=== PATIENT | male | born 1980 | race Caucasian/White ===

== ENCOUNTER 2017-09-25 03:19 | Inpatient (IN) | payer OTHER ==
[2017-09-25] MEDS ORDERED: VANCOMYCIN 1,000 MG in DEXTROSE 5%-WATER - 250 ML IVPB ONE (03:30)
[2017-09-25] MEDS ORDERED: ACETAMINOPHEN 1000 MG/100 ML VIAL (NON FORMULARY) IVPB ONE (03:33)
--- NOTE | 2017-09-25 03:50 | PDOC ---
History of Present Illness - General Chief Complaint: Ear Problem Stated Complaint: EAR PAIN Time Seen by Provider: 09/25/17 03:23 - History of Present Illness Initial Comments: 09/25/17 03:40 28-year-old male with no significant past medical history presents emergency department with 5 days of progressive left-sided ear pain. Patient reports the pain began while he was on a flight back from [facility] 5 days ago. He also reports throbbing inside his left ear as well as subjective fevers since yesterday. He took ibuprofen last night for pain with some relief but the pain woke him up again in the middle of the night prompting him to come to the emergency department. He denies any history of ear infection. Denies any history of diabetes. Denies trauma to the ear. Reports a mild frontal headache since yesterday. Denies any focal weakness or numbness. Denies any nausea or vomiting. Denies chest pain, shortness of breath, abdominal pain, diarrhea, rashes, stiff neck. Patient's states he is at his baseline mental status. Other than ibuprofen, no treatments tried. Past History - Past Medical History Allergies/Adverse Reactions: Allergies Allergy/AdvReac Type Severity Reaction Status Date / Time No Known Allergies Allergy Verified 09/25/17 03:24 Home Medications: Ambulatory Orders Motrin - 200 mg PO PRN 09/25/17 - Suicide/Smoking/Psychosocial Hx Smoking History: Never smoked Hx Alcohol Use: No Drug/Substance Use Hx: No Review of Systems - Review of Systems Comments:: 09/25/17 03:42 GENERAL/CONSTITUTIONAL: No fever or chills. No weakness. HEAD, EYES, EARS, NOSE AND THROAT: No change in vision. +ear pain. No sore throat. GASTROINTESTINAL: No nausea, vomiting, diarrhea or constipation. GENITOURINARY: No dysuria, frequency, or change in urination. CARDIOVASCULAR: No chest pain or shortness of breath. RESPIRATORY: No cough, wheezing, or hemoptysis. MUSCULOSKELETAL: No joint or muscle swelling or pain. No neck or back pain. SKIN: No rash NEUROLOGIC: +headache, no vertigo, loss of consciousness, or change in strength/ sensation. ENDOCRINE: No increased thirst. No abnormal weight change. HEMATOLOGIC/LYMPHATIC: No anemia, easy bleeding, or history of blood clots. ALLERGIC/IMMUNOLOGIC: No hives or skin allergy. *Physical Exam - Vital Signs Last Vital Signs Temp Pulse Resp BP Pulse Ox 99.2 F 90 16 146/90 98 09/25/17 03:20 09/25/17 03:20 09/25/17 03:20 09/25/17 03:20 09/25/17 03:20 - Physical Exam Comments: 09/25/17 03:43 GENERAL: Awake, alert, and fully oriented, in no acute distress. Non toxic appearing HEAD: +L facial edema EYES: PERRLA, EOMI, sclera anicteric, conjunctiva clear ENT: L auricle:TM ruptured with purulent otorrhea, entire outer ear erythematous especially pinna, +downward, posterior and outward displacement of L auricle. +ttp of mastoid bone. R auricle wnl. Normal dentition, no OP erythema or exudates NECK: Normal ROM, supple, no lymphadenopathy, JVD, or masses LUNGS: Breath sounds equal, clear to auscultation bilaterally. No wheezes, and no crackles HEART: Regular rate and rhythm, normal S1 and S2, no murmurs, rubs or gallops ABDOMEN: Soft, nontender, normoactive bowel sounds. No guarding, no rebound. No masses EXTREMITIES: Normal range of motion, no edema. No clubbing or cyanosis. 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 No menigismus SKIN: Warm, Dry, normal turgor, no rashes or lesions noted. ED Treatment Course - LABORATORY CBC & Chemistry Diagram: 09/25/17 04:40 09/25/17 04:40 - RADIOLOGY Radiology Studies Ordered: Category Date Time Status HEAD CT WITHOUT CONTRAST [CT] Stat CT Scan 09/25/17 03:[address] W/O CONTRAST [CT] Stat CT Scan 09/25/17 03:27 Ordered Medical Decision Making - Medical Decision Making 09/25/17 03:50 36yo M presents to the ED with L ear pain, found to have ruptured L TM, otorrhea , displaced auricle, and mastoid ttp all consistent with acute mastoiditis. Pt covered with IV vanc (no recent abx, no PMH so no need for G-/pseudomonal coverage at this point). WIll obtain CTH and CT temporal bone for initial work up. Pt also has possible facial nerve involvement vs edema causing facial asymmetry. Will require admission, ENT consult, continuous IV abx, and possible MRI to evaluate for intracranial involvement. 09/25/17 04:54 Pt reporting some scalp itching while vanc being infused (about 2/3 complete about 1hour in). Vanc stopped. Benadryl ordered. No redness, sob, wheezing, swelling. Will restart vanc slowly. 09/25/17 06:[address] temporal bone consistent with mastoiditis. PT will need ENT consult thus will send down to [place]. Consult to Dr. Hesham knutson, hospitalist has been microblogged for admission. 09/25/17 06:[address] Ashlee wray at [facility] who accepts pt to inpatient admission. Case discussed in detail with admitting physician including history, physical exam and ancillary studies. Admitting physician has assumed care for the patient, will follow all pending diagnostics and will complete the evaluation and treatment. 09/25/17 06:52 Per ENT answering service, Dr. Guillaume will be calling us back (ENT). *DC/Admit/Observation/Transfer Diagnosis at time of Disposition: Mastoiditis of left side - Discharge Dispostion Condition at time of disposition: Stable Decision to Admit order: Yes - Referrals - Patient Instructions - Post Discharge Activity - Attestations Physician Attestion: 09/25/17 06:47 I, Dr. Nato Alcala MD, attest that this document has been prepared under my direction and personally reviewed by me in its entirety. I further attest, that it accurately reflects all work, treatment, procedures and medical decision -making performed by me.
[2017-09-25] MEDS ORDERED: VANCOMYCIN 1,000 MG VIAL (RESTRICTED TO ID ONLY) ONE (03:54)
[2017-09-25 04:58] LABS: BASO % 0.6 % (0-2.0); EOS % 0.8 % (0-4.5); HEMATOCRIT 43.3 % (35.4-49); HEMOGLOBIN 14.9 GM/dL (11.7-16.9); MCH 31.2 pg (25.7-33.7); MCHC 34.5 g/dl (32.0-35.9); MEAN CELL VOLUME 90.4 fl (80-96); MEAN PLT VOLUME 8.2 fl (7.5-11.1); MONO % 8.7 % (3.8-10.2); NEUT % 73.9 % (42.8-82.8); PLATELET COUNT 254 K/MM3 (134-434); RBC 4.78 M/mm3 (4.00-5.60); RDW 13.1 % (11.9-15.9); WHITE BLOOD COUNT 9.9 K/mm3 (4.0-10.0)
[2017-09-25 05:18] LABS: ALBUMIN 3.7 g/dl (3.4-5.0); ANION GAP 5 (8-16); BILIRUBIN,TOTAL 0.6 mg/dL (0.2-1.0); BLOOD UREA NITROGEN 8 mg/dL (7-18); CALCIUM 8.8 mg/dL (8.5-10.1); CHLORIDE 104 mmol/L (98-107); CO2 31 mmol/L (21-32); CREATININE 0.8 mg/dL (0.7-1.3); GLUCOSE,RANDOM 99 mg/dL (74-106); POTASSIUM 3.7 mmol/L (3.5-5.1); SGOT/AST 26 U/L (15-37); SGPT/ALT 35 U/L (12-78); SODIUM 140 mmol/L (136-145); TOT PROT 7.1 g/dl (6.4-8.2)
[2017-09-25 05:19] LABS: ALK PHOS 110 U/L (45-117)
[2017-09-25] MEDS ORDERED: ACETAMINOPHEN INJECTION 100 ML IVPB ONE (05:29)
[2017-09-25 11:31] VITALS: BMI 30.4
--- NOTE | 2017-09-25 12:04 | HP ---
Admitting History and Physical - Admission Chief Complaint: left ear pain History of Present Illness: This is a 36 year old male who presented to the ED with worsening Left ear pain 10 days ago 09/15/2017, pt was flying back from [facility] and while on the plane began having acute pain. In the last 4 days the pain had been worsening, with fever, swelling and becoming red until last night when he decided to go to the ED. He took Ibuprofen without relief. Initially, seen at [place] pt was found to have a left rupture tympanic membrane, displaced auricle and mastoid ttp c/w acute mastoiditis, give IV vanco. Transferred to [facility] for ENT evaluation History Source: Patient, Family Member Limitations to Obtaining History: No Limitations - Smoking History Smoking history: Never smoked Have you smoked in the past 12 months: No - Alcohol/Substance Use Hx Alcohol Use: No History of Substance Use: reports: None - Social History Usual Living Arrangement: Yes: With Spouse ADL: Independent History of Recent Travel: Yes ([facility] ) Home Medications - Allergies Allergies/Adverse Reactions: Allergies Allergy/AdvReac Type Severity Reaction Status Date / Time No Known Allergies Allergy Verified 09/25/17 03:24 - Home Medications Home Medications: Ambulatory Orders Motrin - 200 mg PO PRN 09/25/17 Review of Systems - Review of Systems Constitutional: reports: Fever Eyes: reports: No Symptoms HENT: reports: Ear Pain, Other (erythema, swelling) Neck: reports: No Symptoms Cardiovascular: reports: No Symptoms Respiratory: reports: No Symptoms Gastrointestinal: reports: No Symptoms Genitourinary: reports: No Symptoms Musculoskeletal: reports: No Symptoms Integumentary: reports: No Symptoms Neurological: reports: No Symptoms Endocrine: reports: No Symptoms Hematology/Lymphatic: reports: No Symptoms Psychiatric: reports: No Symptoms Physical Examination Vital Signs: Vital Signs Temperature 98.2 F 09/25/17 10:40 Pulse Rate 72 09/25/17 10:40 Respiratory Rate 18 09/25/17 10:40 Blood Pressure 144/82 09/25/17 10:40 O2 Sat by Pulse Oximetry (%) 99 09/25/17 10:40 Constitutional: Yes: Calm Eyes: Yes: Conjunctiva Clear HENT: Yes: Other (L ear swelling, purulent discharge inside ear canal, erythema to pinna, posterior ear, tenderness to palpation) Neck: Yes: WNL Cardiovascular: Yes: Regular Rate and Rhythm, S1, S2 Respiratory: Yes: Regular, CTA Bilaterally Gastrointestinal: Yes: Normal Bowel Sounds, Soft Renal/: Yes: WNL Musculoskeletal: Yes: WNL Edema: No Integumentary: Yes: Erythema (L ear) Neurological: Yes: Alert, Oriented, Cran Nerves II-XII Intact Labs: CBC, BMP 09/25/17 04:40 09/25/17 04:40 Imaging - Results Cat Scan: Report Reviewed (left otitis externa, acute otitis media w/ masiod air cell effusion, acute mastoiditis) Assessment/Plan Assessment: 36 year old male with left ear pain Plan: 1. Left otitis externa with cellulitis, swelling - Discussed imaging with Dr. Isaacs ENT, and reviewed images, no effusions seen in mastoid cells, less likely mastoiditis - Start zosyn q8hr - Start ofloxacin 5 gtt BID - Decadron 8mg x1 now - ID consult - IV hydration - Send wound cx - Discussed above with Dr. Isaacs 2. DVT - Heparin sq Visit type - Emergency Visit Emergency Visit: Yes ED Registration Date: 09/25/17 Care time: The patient presented to the Emergency Department on the above date and was hospitalized for further evaluation of their emergent condition. - New Patient This patient is new to me today: Yes Date on this admission: 09/25/17 - Critical Care Critical Care patient: No Hospitalist Screening - Colonoscopy Questionnaire Colonoscopy Questionnaire: Colonoscopy Questionnaire - Patient: 50 - 75 years old and never had a screening colonoscopy: Unknown History of colon or rectal polyps, or CA: Unknown History of IBD, Crohn's disease or UC: Unknown History of abdominal radiation therapy as a child: Unknown - Relative: 1 with colon or rectal CA, or polyps at age 60 or younger: Unknown Colon or rectal CA diagnosed at age 45 or younger: Unknown Multiple relatives with colon or rectal CA: Unknown - Outcome: Screening Result: Negative Screen
[2017-09-25] MEDS ORDERED: oxyCODONE HCL 5 MG TABLET PO PRN ×2 (12:32→14:27)
[2017-09-25] MEDS ORDERED: ACETAMINOPHEN 325 MG TABLET (FP) PO PRN (12:32)
--- NOTE | 2017-09-25 12:36 | CON.ENT ---
Consult Consult Specialty:: ENT Reason for Consultation:: Left ear pain - History of Present Illness Chief Complaint: Left ear pain for 3 days History of Present Illness: 36 yo male with 3 days of worsening left ear pain, discharge and trouble hearing. Pt went to [facility] for evaluation, noted to have swollen ear canal and auricle, diagnosed with mastoiditis due to CT scan findings - History Source History Provided By: Patient, Medical Record - Alcohol/Substance Use Hx Alcohol Use: No History of Substance Use: reports: None - Smoking History Smoking history: Never smoked Have you smoked in the past 12 months: No - Social History ADL: Independent History of Recent Travel: Yes ([facility] ) Home Medications - Allergies Allergies/Adverse Reactions: Allergies Allergy/AdvReac Type Severity Reaction Status Date / Time No Known Allergies Allergy Verified 09/25/17 03:24 - Home Medications Home Medications: Ambulatory Orders Motrin - 200 mg PO PRN 09/25/17 Review of Systems - Review of Systems HENT: reports: Ear Pain Physical Exam-ENT Vital Signs: Vital Signs Temperature 98.2 F 09/25/17 10:40 Pulse Rate 72 09/25/17 10:40 Respiratory Rate 18 09/25/17 10:40 Blood Pressure 144/82 09/25/17 10:40 O2 Sat by Pulse Oximetry (%) 99 09/25/17 10:40 Constitutional: Yes: Well Nourished, No Distress, Severe Distress Face: Yes: Symmetrical Eyes: Yes: WNL Nose: Yes: WNL, Pale Nasal Passage: Yes: Pale Oral/Pharynx: Yes: WNL Outer Ear: Yes: Edema, Pain, Redness, Other (Left auricular erythema/edema including lobule. No mastoid tenderness. Canal edema/discharge, unable to visualize TM) Ear Canal: Yes: Drainage, Inflamed (Left auricle with erythema/edema including lobule. No mastoid tenderness), Other Tympanic Membrane: Yes: Other (Normal on right, unable to visualize on left) Neck: Yes: WNL Neurological: Yes: Cran Nerves II-XII Intact Imaging - Results Cat Scan: Report Reviewed, Image Reviewed (Left canal edema, scattered mastoid cell effusion, no coalescence or bony destruction) Problem List - Problems (1) Otitis externa in other diseases classified elsewhere, left ear Assessment/Plan: Left ear pain/swollen canal with auricular induration- recommend Unasyn/ Augmentin and Ofloxacin drops. Code(s): H62.42 - OTITIS EXTERNA IN OTH DISEASES CLASSD ELSWHR, LEFT EAR (2) Cellulitis of auricle of left ear Assessment/Plan: Swollen left auricle including lobule- no mastoid tenderness or induration. Minimal fluid on CT scan, no coalescence or bony destruction. Treat as above. Code(s): H60.12 - CELLULITIS OF LEFT EXTERNAL EAR
[2017-09-25] MEDS ORDERED: DEXTROSE 5%-WATER - 50 ML IVPB ONE ×2 (13:59→18:22)
[2017-09-25] MEDS ORDERED: PIPERACILLIN/TAZOBACTAM 3.375 GM VIAL IVPB ONE ×2 (13:59→18:22)
[2017-09-25] MEDS ORDERED: DEXAMETHASONE SOD PHOSPHATE 4 MG/1 ML VIAL IVPUSH ONE (14:00)
[2017-09-25] MEDS ORDERED: OFLOXACIN 0.3% OTIC SOLUTION 5 ML BOTTLE AU SCH (14:00)
[2017-09-25] MEDS: PIPERACILLIN/TAZOB 3.375 GM 3.375 GM in DEXTROSE 5%-WATER - 50 ML IVPB SCH ×2 (14:03→18:25)
[2017-09-25] MEDS: SODIUM CHLORIDE 1,000 ML IV SCH (15:07)
[2017-09-25] MEDS: HEPARIN NA (PORCINE) 5,000 UNITS/ML 1ML VIAL SQ SCH ×2 (16:05→21:05)
[2017-09-25] MEDS ORDERED: VANCOMYCIN 1,000 MG in DEXTROSE 5%-WATER - 250 ML IVPB SCH (17:00)
--- NOTE | 2017-09-25 18:31 | PN ---
Progress Note (short form) - Note Progress Note: ID Consult dictated
[2017-09-25] MEDS: OFLOXACIN 0.3% OTIC SOLUTION 5 ML BOTTLE AS SCH (21:05)
[2017-09-26] MEDS ORDERED: DEXTROSE 5%-WATER 100 ML IVPB ONE ×2 (00:58→09:11)
[2017-09-26] MEDS ORDERED: PIPERACILLIN/TAZOBACTAM 4.5 GM VIAL IVPB ONE ×2 (00:58→09:11)
[2017-09-26] MEDS: PIPERACILLIN/TAZOB 4.5 GM 4.5 GM in DEXTROSE 5%-WATER 100 ML IVPB SCH ×2 (02:49→09:49)
[2017-09-26] MEDS: SODIUM CHLORIDE 1,000 ML IV SCH ×2 (05:09→09:49)
[2017-09-26] MEDS: HEPARIN NA (PORCINE) 5,000 UNITS/ML 1ML VIAL SQ SCH ×2 (05:52→13:42)
[2017-09-26] MEDS ORDERED: PT OWN MED DRAWER 7, Y5N ONE (06:56)
[2017-09-26 07:28] LABS: BASO % 0.2 % (0-2.0); HEMATOCRIT 41.3 % (35.4-49); HEMOGLOBIN 14.6 GM/dL (11.7-16.9); LYMPH % 9.3 % (8-40); MCH 31.7 pg (25.7-33.7); MCHC 35.3 g/dl (32.0-35.9); MEAN CELL VOLUME 89.7 fl (80-96); MONO % 3.6 % (3.8-10.2); NEUT % 86.9 % (42.8-82.8); PLATELET COUNT 277 K/MM3 (134-434); RBC 4.61 M/mm3 (4.00-5.60); RDW 13.1 % (11.9-15.9); WHITE BLOOD COUNT 15.9 K/mm3 (4.0-10.0)
[2017-09-26 07:31] LABS: ALBUMIN 3.2 g/dl (3.4-5.0); ANION GAP 7 (8-16); BLOOD UREA NITROGEN 12 mg/dL (7-18); CALCIUM 8.9 mg/dL (8.5-10.1); CHLORIDE 105 mmol/L (98-107); CO2 29 mmol/L (21-32); GLUCOSE,RANDOM 113 mg/dL (74-106); SODIUM 141 mmol/L (136-145)
[2017-09-26 07:35] LABS: ALK PHOS 99 U/L (45-117); BILIRUBIN,TOTAL 0.4 mg/dL (0.2-1.0); CREATININE 0.8 mg/dL (0.7-1.3); SGOT/AST 16 U/L (15-37); SGPT/ALT 31 U/L (12-78); TOT PROT 6.7 g/dl (6.4-8.2)
[2017-09-26] MEDS: OFLOXACIN 0.3% OTIC SOLUTION 5 ML BOTTLE AS SCH (09:49)
--- NOTE | 2017-09-26 10:10 | PN ---
Physical Exam: SUBJECTIVE: Patient seen and examined. Pt is feeling remarkably well today, smiling, asking to go home. Denies fever, chills. Only mild pain to area of tragus OBJECTIVE: Vital Signs Period Temp Pulse Resp BP Sys/Goldstein Pulse Ox Last 24 Hr 97.5 F-98.7 F 66-88 16-19 129-155/69-99 99-99 PE Neuro: alert, awake, cn 2-12intact HEENT: L ear swelling-improved, erythema resolved, tragus region tender to palpation, no drainage from ear canal Pulm: CTAB CV: s1 s2 rrr no mrg Abd: s nt nd + bs Ext: warm, no le edema Laboratory Results - last 24 hr 09/26/17 09/26/17 06:10 06:10 WBC 15.9 H RBC 4.61 Hgb 14.6 Hct 41.3 MCV 89.7 MCH 31.7 MCHC 35.3 RDW 13.1 Plt Count 277 MPV 8.0 Absolute Neuts (auto) 13.8 Neutrophils % 86.9 H Lymphocytes % 9.3 D Monocytes % 3.6 L Eosinophils % 0.0 D Basophils % 0.2 Nucleated RBC % 0 Sodium 141 Potassium 4.0 Chloride 105 Carbon Dioxide 29 Anion Gap 7 L BUN 12 Creatinine 0.8 Creat Clearance w eGFR > 60 Random Glucose 113 H Calcium 8.9 Total Bilirubin 0.4 AST 16 D ALT 31 Alkaline Phosphatase 99 D Total Protein 6.7 Albumin 3.2 L Active Medications Generic Name Dose Route Start Last Admin Trade Name Freq PRN Reason Stop Dose Admin Acetaminophen 650 mg 09/25/17 12:32 Tylenol - PO Q4H PRN PAIN LEVEL 1 - 3 Heparin Sodium (Porcine) 5,000 unit 09/25/17 16:00 09/26/17 05:52 Heparin - SQ 5,000 unit TID FEI Administration Sodium Chloride 1,000 mls @ 83 mls/hr 09/25/17 12:45 09/26/17 09:49 Normal Saline - IV Not Given ASDIR FEI Piperacillin Sod/Tazobactam 100 mls @ 200 mls/hr 09/26/17 02:00 09/26/17 09: 49 Sod 4.5 gm/ Dextrose IVPB 200 mls/hr Q8H-IV FEI Administration Protocol Ofloxacin 5 drop 09/25/17 17:48 09/26/17 09:49 Floxin Otic (Ear) Solution - 5 drop BID FEI Administration Oxycodone HCl 5 mg 09/25/17 14:27 Roxicodone - PO Q4H PRN PAIN LEVEL 4 - 6 Microbiology 09/25/17 04:40 Blood - Peripheral Venous Blood Culture - Preliminary NO GROWTH OBTAINED AFTER 24 HOURS, INCUBATION TO CONTINUE FOR 4 DAYS. 09/25/17 04:40 Blood - Peripheral Venous Blood Culture - Preliminary NO GROWTH OBTAINED AFTER 24 HOURS, INCUBATION TO CONTINUE FOR 4 DAYS. Assessment: 36 year old male with left ear pain Plan: 1. Left otitis externa with cellulitis, swelling - Continue Zosyn 405gm q8hr (day 1) - Continue ofloxacin 5 gtt BID (day 2 of 10) 2. HTN - BP elevated here, not on home medication, would trend - Start hctz if needed, no risk factors noted - Will check hgb a1c, lipid panel 3. DVT ppx - Heparin sq Visit type - Emergency Visit Emergency Visit: Yes ED Registration Date: 09/25/17 Care time: The patient presented to the Emergency Department on the above date and was hospitalized for further evaluation of their emergent condition. - New Patient This patient is new to me today: No - Critical Care Critical Care patient: No
--- NOTE | 2017-09-26 12:19 | PN ---
Progress Note (short form) - Note Progress Note: Pt feeling better today, less pain and discharge. PE: decreased auricular induration, still with mild edema and erythema. Less canal edema and discharge. A/P: Left OE with Auricular Cellulitis- improved with IV Abx and drops. Can switch to PO and d/c on meds and drops with follow-up with ENT next week. Problem List - Problems (1) Otitis externa in other diseases classified elsewhere, left ear Code(s): H62.42 - OTITIS EXTERNA IN OTH DISEASES CLASSD ELSWHR, LEFT EAR (2) Cellulitis of auricle of left ear Code(s): H60.12 - CELLULITIS OF LEFT EXTERNAL EAR
--- NOTE | 2017-09-26 14:01 | PN ---
Progress Note, Physician History of Present Illness: Clinically improved Reports ear pain much improved Less discharge reported No fever/ chills WBC increased ( received dexamethasone) - Current Medication List Current Medications: Active Medications Acetaminophen (Tylenol -) 650 mg PO Q4H PRN PRN Reason: PAIN LEVEL 1 - 3 Heparin Sodium (Porcine) (Heparin -) 5,000 unit SQ TID FEI Last Admin: 09/26/17 13:42 Dose: 5,000 unit Piperacillin Sod/Tazobactam (Sod 4.5 gm/ Dextrose) 100 mls @ 200 mls/hr IVPB Q8H-IV FEI; Protocol Last Admin: 09/26/17 09:49 Dose: 200 mls/hr Ofloxacin (Floxin Otic (Ear) Solution -) 5 drop BID FEI Last Admin: 09/26/17 09:49 Dose: 5 drop Oxycodone HCl (Roxicodone -) 5 mg PO Q4H PRN PRN Reason: PAIN LEVEL 4 - 6 - Objective Vital Signs: Vital Signs Temperature 97.5 F L 09/26/17 09:03 Pulse Rate 80 09/26/17 09:03 Respiratory Rate 18 09/26/17 09:03 Blood Pressure 155/99 09/26/17 09:03 O2 Sat by Pulse Oximetry (%) 97 09/26/17 09:00 Constitutional: Yes: No Distress HENT: Yes: Other (minimal erythema/ induration of L pinna No tenderness No discharge noted) Cardiovascular: Yes: Regular Rate and Rhythm, S1, S2 Respiratory: Yes: CTA Bilaterally Labs: CBC, BMP 09/26/17 06:10 09/26/17 06:10 Assessment/Plan L otitis externa Mastoiditis Clinically improved Substitute Augmentin 875mg po bid x 10d Outpatient ENT follow up
[2017-09-26 15:00] VITALS: BP 148/82; PULSE 82; TEMP 98
--- NOTE | 2017-09-26 15:44 | CONS ---
DATE OF CONSULTATION: DATE OF DICTATION: 09/26/2017 INFECTIOUS DISEASE CONSULTATION HISTORY OF PRESENT ILLNESS: The patient is a 36-year-old male who was evaluated for left otitis external and mastoiditis. The patient complains of left ear pain which developed after a flight from [facility]. He complained of worsening left ear pain and discharge. He was seen in the emergency room where a head CT revealed left otitis externa, opacified left mastoid cells consistent with acute mastoiditis. There did not appear to be any bone infection. According to the notes, on examination, he was found to have a ruptured left tympanic membrane and gross purulence. Cultures were obtained. He was empirically treated with antibiotics. At the present time, he reports improvement in his. He was seen in consultation by ENT. He denies any fever or chills. PAST MEDICAL HISTORY: Negative. ALLERGIES: No known allergies. LABORATORY DATA: White count 9.9, hemoglobin 43.3, platelet count 254. BUN 8, creatinine 0.8. PHYSICAL EXAMINATION: General Appearance: He is not acutely toxic appearing and in no acute distress. Vital Signs: Temperature 98.5, blood pressure 136/78, pulse 66 regular, respirations 18 per minute. HEENT: Sclerae anicteric. Examination of left ear, there is diffuse swelling of the left pinna with mild erythema. There is slight tenderness present and anterior to the ear. No purulent drainage is noted. Oropharynx negative. Neck: Supple. No palpable adenopathy. Heart: Sounds S1, S2. Lungs: Clear. Abdomen: Soft and nontender. Extremities: Negative for edema. IMPRESSION: 1. Left otitis externa. 2. Left mastoiditis. PLAN: Pending cultures empiric antibiotic coverage with Zosyn. Continue antibiotic eardrops. ENT followup. Thank you for the kind referral. ROCKY SAWYER M.D. [id number]
--- NOTE | 2017-09-26 16:00 | DS ---
Physical Exam: SUBJECTIVE: Patient seen and examined. Doing well, pain resolved, eager for DC . OBJECTIVE: Vital Signs Period Temp Pulse Resp BP Sys/Goldstein Pulse Ox Last 24 Hr 97.5 F-98.7 F 66-88 16-19 129-155/69-99 97-99 PE Neuro: alert, awake, cn 2-12intact HEENT: L ear swelling-improved, erythema resolved, tragus region tender to palpation, no drainage from ear canal Pulm: CTAB CV: s1 s2 rrr no mrg Abd: s nt nd + bs Ext: warm, no le edema Laboratory Results - last 24 hr 09/26/17 09/26/17 06:10 06:10 WBC 15.9 H RBC 4.61 Hgb 14.6 Hct 41.3 MCV 89.7 MCH 31.7 MCHC 35.3 RDW 13.1 Plt Count 277 MPV 8.0 Absolute Neuts (auto) 13.8 Neutrophils % 86.9 H Lymphocytes % 9.3 D Monocytes % 3.6 L Eosinophils % 0.0 D Basophils % 0.2 Nucleated RBC % 0 Sodium 141 Potassium 4.0 Chloride 105 Carbon Dioxide 29 Anion Gap 7 L BUN 12 Creatinine 0.8 Creat Clearance w eGFR > 60 Random Glucose 113 H Calcium 8.9 Total Bilirubin 0.4 AST 16 D ALT 31 Alkaline Phosphatase 99 D Total Protein 6.7 Albumin 3.2 L HOSPITAL COURSE: Date of Admission:09/25/17 Date of Discharge: 09/26/17 Minutes to complete discharge: 37 Discharge Summary Reason For Visit: MASTOIDITIS OF LEFT SIDE Hospital Course: Hospital Course: Briefly, this 36 year old male presented to the ED with worsening Left ear pain 10 days ago 09/15/2017, pt was flying back from [facility] and while on the plane began having acute pain. In the last 4 days the pain had been worsening, with fever, swelling and becoming red until last night when he decided to go to the ED. He took Ibuprofen without relief. Initially, seen at [place] pt was found to have a left rupture tympanic membrane, displaced auricle and mastoid ttp c/w acute mastoiditis, give IV vanco. Transferred to [facility] for ENT evaluation Subsequent Hospital Course: Assessment: 36 year old male with left ear pain Plan: 1. Left otitis externa with cellulitis, swelling - Discussed imaging with Dr. Isaacs ENT, and reviewed images, no effusions seen in mastoid cells, less likely mastoiditis - s/p Zosyn 405gm q8hr (day 1) - s/p decadron 8mg x1 - Home with augmentin 875 BID x 10 days - Continue ofloxacin 5 gtt BID (day 2 of 10) - ENT follow up next week Dispo: - Home with above medication and follow up Condition: Stable - Instructions Diet, Activity, Other Instructions: Please return to the ED for any new, persistent, or worsening symptoms. Follow up with your pcp in 1 week take antibiotics as directed and until completed follow up with ENT Dr Guillaume next week make an appointment with information enclosed Referrals: Riccardo Guillaume MD [Staff Physician] - 1 Week (make an appointment to see him next week ) Disposition: HOME - Home Medications Comprehensive Discharge Medication List: Ambulatory Orders Motrin - 200 mg PO PRN 09/25/17 Amoxicillin/Potassium Clav [Augmentin 875-125 Tablet] 1 each PO BID #20 tablet 09/26/17 Ofloxacin Otic [Floxin Otic -] 5 drop BID #1 drops 09/26/17 This patient is new to me today: No Emergency Visit: Yes ED Registration Date: 09/25/17 Care time: The patient presented to the Emergency Department on the above date and was hospitalized for further evaluation of their emergent condition. Critical Care patient: No - Discharge Referral Referred to [facility] Yes Physician Referral: Hussein Hoyos MD ([facility])
[2017-09-26] MEDS ORDERED: AMOX TR/POT CLAV 875MG/125MG TABLETS (FP) PO SCH (17:30)
== END 2017-09-26 15:34 | disposition home or self-care (01) | DRG 113 ==
LOC: FER 03:19 → J6S 10:40
PROVIDERS: ADMIT Internal Medicine; ATTEND Nurse Practitioner Acute Care
DX: H70.92 Unspecified mastoiditis, left ear (principal); H60.12 Cellulitis of left external ear; H60.92 Unspecified otitis externa, left ear; I10 Essential (primary) hypertension
CPT/HCPCS: 36415; 70450-TC; 70480-TC; 80053; 85025; 87040; 87070; 87186; 87205; 99282-25; J0131; J1644; J7030